=== PATIENT | female | born 2005 | race Caucasian/White ===

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

== ENCOUNTER 2024-07-27 13:12 | Outpatient (CLI) | payer BC, SELFPAY ==
--- NOTE | ~2024-07-27 | US_ITS ---
Pelvic ultrasound. Clinical History: Excessive and frequent menstruation Technique: Realtime transabdominal and transvaginal scanning of the pelvis was performed. Color flow Doppler and Doppler spectral analysis were performed. Findings: The uterus is anteverted, and measures 6.4 x 2.9 x 3.7 cm. The endometrial stripe has a th ickness of 4 mm. No focal mass is identified. The right ovary measures 2.5 x 1.1 x 2.0 cm. No significant right ovarian or adnexal mass is seen. The left ovary measures 0.9 x 0.8 x 1.3 cm. No significant left ovarian or adnexal mass is seen. There is no evidence of free fluid in the cul de sac. Impression: Unremarkable pelvic ultrasound. Reviewed, dictated and finalized at [facility]. Impression: Unremarkable pelvic ultrasound.
== END 2024-07-27 13:13 | disposition home or self-care (01) ==
PROVIDERS: PCP Internal Medicine; Visit Provider Obstetrics & Gynecology Gynecology
DX: N92.0 Excessive and frequent menstruation with regular cycle (principal)
CPT/HCPCS: 76830